=== PATIENT | female | born 1970 | race African-American/Black ===

== ENCOUNTER 2024-05-29 15:31 | Emergency (ER) | payer MEDICAID, OTHER ==
[~2024-05-29] VITALS: Ht 167.6 cm; Wt 79.0 kg
[~2024-05-29 15:31] MED LIST: IBUP-2029 MT
[2024-05-29 15:39] VITALS: O2SAT 100
[2024-05-29] MEDS: KETOROLAC 30MG/ML VIAL IM ONE (19:53)
[2024-05-29] MEDS: METHOCARBAMOL 500MG TABLET PO ONE (19:53)
[2024-05-29 21:03] LABS: CHLORIDE 104 mEq/L (98-107); SODIUM 138 mEq/L (136-145)
[2024-05-29 21:04] LABS: CALCIUM 9.6 mg/dL (8.7-10.4); CARBON DIOXIDE 26 mEq/L (21-32)
[2024-05-29 21:05] LABS: BASOPHILS % 0.5 % (0.0-2.0); EOSINOPHILS % 0.3 % (0.0-5.0); HEMATOCRIT. 36.7 % (36.0-48.0); HEMOGLOBIN. 11.9 g/dL (12.0-16.0); LYMPHOCYTES % 21.9 % (20.0-50.0); MEAN CORPUSCULAR HEMOGLOBIN 26.7 pg (28.0-32.0); MEAN CORPUSCULAR HGB CONC 32.4 g/dL (31.0-37.0); MEAN CORPUSCULAR VOLUME 82.5 fL (81.0-99.0); MEAN PLATELET VOLUME 7.7 fl (7.4-10.4); MONOCYTES % 7.2 % (2.0-8.0); NEUTROPHILS % 70.1 % (40.0-76.0); PLATELET 334 x1000/uL (130-400); RED BLOOD CELL COUNT 4.45 mill/uL (4.2-5.4); RED CELL DISTRIBUTION WIDTH 14.2 % (11.6-14.6); WHITE BLOOD COUNT 8.6 x1000/uL (4.5-11.0)
[2024-05-29 21:09] LABS: CREATININE 0.9 mg/dL (0.6-1.0); GLUCOSE 127 mg/dL (70-105); UREA NITROGEN BLOOD 13 mg/dL (9-23)
[2024-05-29] MEDS ORDERED: METH-653 MT (21:46)
[2024-05-29] MEDS ORDERED: FAMO-135 MT (21:46)
[2024-05-29] MEDS ORDERED: IBUP-2029 MT (21:46)
[2024-05-29 22:22] LABS: ALANINE AMINOTRANSFERASE 12 IU/L (10-49); ALBUMIN 4.5 g/dL (3.2-4.8); ASPARTATE AMINOTRANSFERASE 12 IU/L (<34)
[2024-05-29 22:23] LABS: BILIRUBIN DIRECT 0.2 mg/dL (<=3.0); BILIRUBIN TOTAL 0.7 mg/dL (0.1-1.0); PROTEIN TOTAL 8.2 g/dL (6.0-8.3)
[2024-05-29 22:32] VITALS: BP 127/78; PULSE 95; RESP 18; TEMP 36.7; O2SAT 99
== END 2024-05-29 22:34 | disposition home or self-care (01) ==
LOC: ER 15:31
DX: K80.20 Calculus of gallbladder without cholecystitis without obstruction (principal); I10 Essential (primary) hypertension; E11.9 Type 2 diabetes mellitus without complications
CPT/HCPCS: 99285; 76705; 80076; 80048; 85025; 36415; 72100; 96372; J1885